=== PATIENT | male | born 1945 | race Two or more races ===

== ENCOUNTER 2021-12-07 06:28 | Day surgery (SDC) | payer MEDICARE ==
[~2021-12-07] VITALS: Ht 162.6 cm; Wt 74.8 kg
[2021-12-07] MEDS ORDERED: AMLO5 (07:04)
[2021-12-07] MEDS ORDERED: METO25ER (07:04)
[2021-12-07] MEDS ORDERED: METF500 (07:08)
== END 2021-12-07 08:50 | disposition home or self-care (01) ==
LOC: ORSCSDS 06:28 → ORD 08:00 → ORSCSDS 08:00 → ORSCMMR 08:00 → ORSCSDS 08:50
PROVIDERS: Surgery
PROC: 0DBL8ZX Excision of Transverse Colon, Via Natural or Artificial Opening Endoscopic, Diagnostic (ICD-10-PCS; principal; 2021-12-07 08:00)
PROC: 0DBP8ZX Excision of Rectum, Via Natural or Artificial Opening Endoscopic, Diagnostic (ICD-10-PCS; principal; 2021-12-07 08:00)
DX: Z12.11 Encounter for screening for malignant neoplasm of colon (principal); Z86.010 Personal history of colon polyps; D12.3 Benign neoplasm of transverse colon; K62.1 Rectal polyp; E11.9 Type 2 diabetes mellitus without complications; E78.5 Hyperlipidemia, unspecified; I10 Essential (primary) hypertension; Z79.82 Long term (current) use of aspirin; Z79.899 Other long term (current) drug therapy
CPT/HCPCS: 82947; J2704; J7120